=== PATIENT | female | born 1975 | race African-American/Black ===

== ENCOUNTER → 2016-11-17 | Outpatient (CLI) | payer BC, OTHER ==
--- NOTE | ~2016-11-17 | CT71 ---
[facility] A Service of [facility] RADIOLOGY TEXT RESULTS PATIENT: JOSELYN FELDMAN LOCATION: [facility] : 73 UNIT #: [id number] AGE: [address]: MARY Bennett APRN SEX: F ORDER DR: [id number] [facility] [address] [place], [place] [address] [id number] O MR#: [id number] Acc #: [id number] NAME: JOSELYN FELDMAN : 1975 SEX: F STUDY DATE/TIME: 11/17/2016 16:02 UNIT: [facility] ROOM: STUDY DESCRIPTION: CT Head Wo Contrast Attending Physician: Mary Fraga Aprn Referring Physician: Mary Fraga Aprn Ordering Physician: Mary Fraga Aprn Primary Care Physician: Mary Fraga Aprn MEDICAL IMAGING REPORT This report is preliminary unless electronic signature is present EXAM CT head without contrast 11/17/2016 HISTORY 41-year-old female with dizziness and giddiness for [address] head 08/27/2007 and 09/29/2010 TECHNIQUE Routine unenhanced axial images performed through the brain. This CT exam was performed with one or more of the following radiation dose reduction techniques: automatic control, adjustment of mA and/or kV according to patient size, and iterative reconstruction. FINDINGS No hemorrhage, acute infarction, mass lesion, or abnormal extraaxial fluid collection. No midline shift or focal mass effect. Ventricular system is normal in size and configuration. No acute bony abnormality. There is complete opacification of the visualized right maxillary sinus. There is a partially imaged mucous retention cyst in the left maxillary sinus. Visualized mastoid air cells are clear. IMPRESSION 1. No acute intracranial abnormality. 2. Complete opacification of the visualized right maxillary sinus, similar to 09/29/2010. 3. Partially imaged mucous retention cyst left maxillary sinus. Dictated by... Good Infante M.D. THIS IS AN ELECTRONICALLY VERIFIED REPORT [facility] A Service of [facility] RADIOLOGY TEXT RESULTS PATIENT: JOSELYN FELDMAN LOCATION: [facility] : 73 UNIT #: [id number] AGE: [address]: MARY Bennett, [employer] DISPENSING SEX: F ORDER DR: Good Infante M.D. at 11/18/2016 7:52 AM GERTRUDIS/roni TD: 11/17/2016 16:43 JOB #: [id number] MEDICAL IMAGING REPORT Page 1 of 1 COPY
== END | disposition home or self-care (01) ==
LOC: CCAT 15:43
DX: R42 Dizziness and giddiness (principal); J34.1 Cyst and mucocele of nose and nasal sinus
CPT/HCPCS: 70450

== ENCOUNTER 2016-11-22 23:59 | Emergency (ER) | payer BC, OTHER ==
--- NOTE | ~2016-11-22 | EKG ---
PATIENT: JOSELYN FELDMAN UNIT #: [id number] Ventricular Rate: 98 BPM Atrial Rate: 98 BPM P-R Interval: 162 ms QRS Duration: 84 ms Q-T Interval: 342 ms QTC Calculation(Bezet): 436 ms P [place]: 37 degrees Calculated R [place]: 27 degrees Calculated T [place]: 38 degrees Diagnosis Line: Normal sinus rhythm Diagnosis Line: Normal ECG Diagnosis Line: No previous ECGs available Diagnosis Line: Confirmed by DAVID MARTINEZ MD ([id number]) on 11/23/2016 Diagnosis Line: 11:28:02 PM INTERPRETING MD: JUAN BARRON
[2016-11-23 01:28] LABS: URINE SOURCE CLEAN CATCH
[2016-11-23 01:32] LABS: URINE APPEARANCE CLOUDY; URINE BILIRUBIN NEG (NEG); URINE BLOOD NEG (NEG); URINE COLOR YELLOW; URINE GLUCOSE NEG (NEG); URINE KETONE TRACE (NEG); URINE LEUKOCYTE ESTERASE 2+ (NEG); URINE NITRATE NEG (NEG); URINE PROTEIN TRACE (NEG); URINE SPECIFIC GRAVITY 1.028 (1.003-1.035)
[2016-11-23 01:32] LABS: BASOPHIL% 0.3 % (0-2.5); EOSINOPHIL# 0.1 X10e3 (0-0.7); EOSINOPHIL% 0.9 % (0.0-7.0); HEMATOCRIT 46.6 % (35.0-45.0); HEMOGLOBIN 15.2 gm/dL (12.0-16.0); LYMPHOCYTE# 0.8 X10e3 (1.0-3.5); LYMPHOCYTE% 8.4 % (17.0-45.0); MEAN CELL VOLUME 87.8 FL (83-96); MEAN CORPUSCULAR HEMOGLOBIN 28.7 PG (28-34); MEAN CORPUSCULAR HGB CONC 32.7 g/dL (30-36); MEAN PLATELET VOLUME 8.9 FL (6.5-11.5); MONOCYTE# 0.5 X10e3 (0-1.0); MONOCYTE% 5.6 % (3.0-12.0); NEUTROPHIL# 7.8 X10e3 (1.5-7.1); NEUTROPHIL% 84.8 % (40-75); PLATELET COUNT 255 X10e3 (140-420); RED BLOOD COUNT 5.31 X10e (3.90-5.30); RED CELL DISTRIBUTION WIDTH 13.7 % (11.0-15.5); WHITE BLOOD COUNT 9.2 X10e3 (4.0-10.5)
[2016-11-23 01:35] LABS: CULTURE INDICATED? YES; URINE BACTERIA AUWI 2+ (NEGATIVE); URINE SQUAMOUS EPITHELIAL CELL MOD /[HPF]; UWBCS1 AUWI 25-50 (0-5)
[2016-11-23 01:35] LABS: DIFF IND NO
[2016-11-23 01:55] LABS: INFLUENZA A NEG (NEG); INFLUENZA B NEG (NEG)
[2016-11-23 01:57] LABS: POC - CKMB <1.0 ng/mL (0.0-7.9); POC - TROPONIN <0.05 ng/mL (<=0.05)
[2016-11-23 02:00] LABS: ALBUMIN SERUM 4.3 g/dL (3.5-5.0); BILIRUBIN, DIRECT 0.1 mg/dL (0.0-0.2); BILIRUBIN,INDIRECT 0.6 mg/dL (0.0-0.9); BILIRUBIN,TOTAL 0.7 mg/dL (0.2-2.0); BUN/CREATININE RATIO 21.25; CALCIUM SERUM 9.5 mg/dL (8.4-10.2); CREATININE SERUM 0.8 mg/dL (0.6-1.4); GLOM FILT RATE Estimated 105.5 mL/min (>60); PROTEIN TOTAL SERUM 8.5 g/dL (6.0-8.3)
== END 2016-11-23 05:20 | disposition home or self-care (01) ==
LOC: CED 23:59
PROVIDERS: Nurse Practitioner Family
DX: N39.0 Urinary tract infection, site not specified (principal); E11.9 Type 2 diabetes mellitus without complications; I10 Essential (primary) hypertension
CPT/HCPCS: 36415; 80048; 80076; 81003; 82553; 82947; 83690; 84484; 84703; 85025; 87086; 87651; 87804; 93005; 99284; J2765